=== PATIENT | male | born 2000 | race Caucasian/White ===

== ENCOUNTER 2019-02-20 21:19 | Emergency (ER) | payer MEDICAID ==
[~2019-02-20] VITALS: Ht 188 cm; Wt 92.0 kg
[2019-02-20 22:22] VITALS: BP 153/87
== END 2019-02-21 02:30 | disposition left against medical advice (07) ==
LOC: ER 21:19
DX: R55 Syncope and collapse (principal); Z53.21 Procedure and treatment not carried out due to patient leaving prior to being seen by health care provider